=== PATIENT | female | born 1970 | race African-American/Black ===

== ENCOUNTER 2018-08-24 10:25 | Emergency (ER) | payer MEDICAID, OTHER ==
[~2018-08-24] VITALS: Ht 165.1 cm; Wt 87.0 kg
[~2018-08-24 10:25] MED LIST: OMEP20CA4 PO; TRIA1TAB5
[2018-08-24 10:40] VITALS: BP 149/89
== END 2018-08-24 13:40 | disposition home or self-care (01) ==
LOC: ER 10:25
DX: J06.9 Acute upper respiratory infection, unspecified (principal); I10 Essential (primary) hypertension; F17.200 Nicotine dependence, unspecified, uncomplicated; Z90.49 Acquired absence of other specified parts of digestive tract; Z98.51 Tubal ligation status; Z98.890 Other specified postprocedural states
CPT/HCPCS: 71045; 81025; 99283

== ENCOUNTER 2019-04-15 16:12 | Emergency (ER) | payer MEDICAID, OTHER ==
[~2019-04-15] VITALS: Ht 175.3 cm; Wt 84.0 kg
[2019-04-15] MEDS ORDERED: KETOROLAC 30MG/ML VIAL IV STA (20:17)
[2019-04-15] MEDS ORDERED: SODIUM CHLORIDE 0.9% 1,000 ML IV ONE (20:17)
[2019-04-15] MEDS ORDERED: ONDANSETRON HCL 4MG/2ML INJ IV STA (20:17)
[2019-04-15 20:55] LABS: CLARITY URINE CLEAR (CLEAR); COLOR URINE YELLOW (YELLOW); PH URINE 5.5 (4.5-8.0); SPECIFIC GRAVITY URINE 1.016 (1.005-1.030)
[2019-04-15 20:56] LABS: KETONES URINE NEGATIVE (NEGATIVE); LEUKOCYTE ESTERASE URINE NEGATIVE (NEGATIVE); NITRITE URINE NEGATIVE (NEGATIVE); OCCULT BLOOD URINE NEGATIVE (NEGATIVE); PROTEIN URINE 3+ (NEGATIVE); UROBILINOGEN URINE 0.2 E.U./dL (0.2-1.0)
[2019-04-15 21:25] LABS: CHLORIDE 107 mEq/L (98-107)
[2019-04-15 21:28] LABS: BASOPHILS % 1.5 % (0.0-2.0); EOSINOPHILS % 2.7 % (0.0-5.0); HEMATOCRIT. 28.1 % (36.0-48.0); HEMOGLOBIN. 9.1 g/dL (12.0-16.0); LYMPHOCYTES % 29.7 % (20.0-50.0); MEAN CORPUSCULAR HEMOGLOBIN 21.7 pg (28.0-32.0); MEAN CORPUSCULAR VOLUME 67.2 fL (81.0-99.0); MONOCYTES % 9.2 % (2.0-8.0); NEUTROPHILS % 56.9 % (40.0-76.0); PLATELET 381 x1000/uL (130-400); RED BLOOD CELL COUNT 4.18 mill/uL (4.2-5.4); RED CELL DISTRIBUTION WIDTH 17.7 % (11.6-14.6)
[2019-04-15 21:44] LABS: PLATELET ESTIMATE NORMAL
[2019-04-15] MEDS ORDERED: LIDOCAINE 5% PATCH TOP STA (22:27)
[2019-04-15] MEDS ORDERED: POTASSIUM CHLORIDE 20MEQ/PACKET PO ONE (22:30)
[2019-04-15] MEDS ORDERED: ACETAMINOPHEN 325MG TABLET PO ONE (22:30)
[2019-04-15] MEDS ORDERED: KETOROLAC 15MG/ML VIAL IV ONE (22:30)
[2019-04-16 02:07] VITALS: BP 142/83
== END 2019-04-16 02:27 | disposition home or self-care (01) ==
LOC: ER 16:12
DX: R10.9 Unspecified abdominal pain (principal); Z71.6 Tobacco abuse counseling; F17.200 Nicotine dependence, unspecified, uncomplicated; I10 Essential (primary) hypertension; E03.9 Hypothyroidism, unspecified; Z98.890 Other specified postprocedural states
CPT/HCPCS: 36415; 74176; 76830; 76856; 80053; 81003; 81025; 83690; 85025; 96374; 96375; 96376; 99284; 99406; J1885; J2405; J7030; Z7610

== ENCOUNTER 2024-06-29 22:50 | Inpatient (IN) | payer MEDICAID, OTHER ==
[~2024-06-29] VITALS: Ht 162.6 cm; Wt 98.4 kg
[2024-06-29 23:07] VITALS: O2SAT 98
[2024-06-29] MEDS: NITROGLYCERIN 0.4MG TABLET SL SL PRN (23:45)
[2024-06-29] MEDS: ASPIRIN 81MG TABLET PO ONE (23:45)
[2024-06-30 01:38] LABS: BASOPHILS % 1.1 % (0.0-2.0); EOSINOPHILS % 3.8 % (0.0-5.0); HEMOGLOBIN. 12.3 g/dL (12.0-16.0); LYMPHOCYTES % 32.3 % (20.0-50.0); MEAN CORPUSCULAR HEMOGLOBIN 30.9 pg (28.0-32.0); MEAN CORPUSCULAR HGB CONC 34.3 g/dL (31.0-37.0); MEAN CORPUSCULAR VOLUME 90.1 fL (81.0-99.0); MEAN PLATELET VOLUME 8.5 fl (7.4-10.4); MONOCYTES % 8.6 % (2.0-8.0); NEUTROPHILS % 54.2 % (40.0-76.0); PLATELET 264 x1000/uL (130-400); RED CELL DISTRIBUTION WIDTH 12.6 % (11.6-14.6); WHITE BLOOD COUNT 7.3 x1000/uL (4.5-11.0)
[2024-06-30 01:39] LABS: CHLORIDE 106 mEq/L (98-107); POTASSIUM 3.4 mEq/L (3.5-5.1); SODIUM 139 mEq/L (136-145)
[2024-06-30 01:40] LABS: CALCIUM 8.8 mg/dL (8.7-10.4); CARBON DIOXIDE 24 mEq/L (21-32)
[2024-06-30 01:45] LABS: GLUCOSE 93 mg/dL (70-105); UREA NITROGEN BLOOD 14 mg/dL (9-23)
[2024-06-30 01:51] LABS: TROPONIN I HIGH SENSITIVITY < 4 ng/L (3.0-34)
[2024-06-30 04:15] LABS: TROPONIN I HIGH SENSITIVITY < 4 ng/L (3.0-34)
[2024-06-30] MEDS: POTASSIUM CHLORIDE 20MEQ/PACKET PO ONE (04:17)
[2024-06-30] MEDS ORDERED: MORPHINE SULFATE 4 MG/ML INJ (FOR IV/IM USE) IV STA (04:38)
[2024-06-30 04:44] LABS: D-DIMER 0.25 mg/L FEU (<0.50); INR 0.9; PARTIAL THROMBOPLASTIN TIME 26.2 sec (23.4-31.0); PROTHROMBIN TIME 10.6 sec (9.6-11.0)
[2024-06-30] MEDS ORDERED: IOHEXOL-350 100 ML BOTTLE ONE (05:36)
[2024-06-30] MEDS: ONDANSETRON HCL 4MG/2ML INJ IV NR (06:54)
[2024-06-30] MEDS: MORPHINE SULFATE 4 MG/ML INJ (FOR IV/IM USE) IV NR (06:55)
[2024-06-30] MEDS: ONDANSETRON HCL 4MG/2ML INJ IV STA (06:58)
[2024-06-30] MEDS ORDERED: IPRATROPIUM/ALBUTEROL 0.5-3(2.5)MG/3ML NEB NEB PRN (07:45)
[2024-06-30] MEDS ORDERED: CLONIDINE 0.1MG TABLET PO PRN (07:45)
[2024-06-30] MEDS ORDERED: ACETAMINOPHEN 325MG TABLET PO PRN ×2 (07:45)
[2024-06-30] MEDS ORDERED: HYDROCODONE/ACETAMINOPHEN 5/325MG TABLET PO PRN (07:45)
[2024-06-30] MEDS ORDERED: MAGNESIUM/ALUMINUM HYDROXIDE/SIMETHICONE 30ML UDC PO PRN (07:45)
[2024-06-30] MEDS ORDERED: DOCUSATE SODIUM 100MG CAPSULE PO PRN (07:45)
[2024-06-30] MEDS ORDERED: NALOXONE HCL 0.4MG/ML VIAL IV PRN (08:15)
[2024-06-30] MEDS: ASPIRIN 81MG EC TABLET PO SCH (09:00)
[2024-06-30] MEDS: PANTOPRAZOLE 40MG DR TABLET PO SCH (10:15)
[2024-06-30] MEDS: LISINOPRIL 10MG TABLET PO SCH (13:17)
[2024-06-30 13:54] LABS: T4 FREE 1.36 ng/dL (0.89-1.76)
[2024-06-30] MEDS ORDERED: METOPROLOL TARTRATE 5MG/5ML VIAL IV PRN (15:15)
[2024-06-30 17:13] VITALS: BP 150/84; PULSE 84; RESP 19; TEMP 36.696
[2024-06-30 20:00] VITALS: BP 139/94; PULSE 56; RESP 18; TEMP 36.89184; O2SAT 99
[2024-06-30] MEDS: ENOXAPARIN 30MG/0.3ML SYR SUBCUT SCH (21:00)
[2024-06-30] MEDS ORDERED: LISI10TA26 MT (21:40)
[2024-06-30] MEDS ORDERED: LEVO200T8 MT (21:46)
[2024-07-01] VITALS: BP 185/118; PULSE 90; RESP 18; TEMP 36.83628; O2SAT 98
[2024-07-01 00:19] LABS: CREATINE KINASE MB FRACTION < 0.5 ng/mL (0.5-3.6)
[2024-07-01 00:20] LABS: CREATINE KINASE 47 IU/L (34-145)
[2024-07-01 00:21] LABS: TROPONIN I HIGH SENSITIVITY < 4 ng/L (3.0-34)
[2024-07-01 00:30] VITALS: BP 137/98; PULSE 60
[2024-07-01 04:00] VITALS: BP 127/70; PULSE 60; RESP 17; TEMP 36.9474; O2SAT 98
[2024-07-01 08:00] VITALS: BP 140/97; PULSE 55; RESP 18; TEMP 37.00296; O2SAT 99
[2024-07-01 08:32] LABS: BASOPHILS % 1.3 % (0.0-2.0); EOSINOPHILS % 4.5 % (0.0-5.0); HEMATOCRIT. 36.7 % (36.0-48.0); HEMOGLOBIN. 12.4 g/dL (12.0-16.0); LYMPHOCYTES % 33.1 % (20.0-50.0); MEAN CORPUSCULAR HEMOGLOBIN 30.8 pg (28.0-32.0); MEAN CORPUSCULAR HGB CONC 33.7 g/dL (31.0-37.0); MEAN CORPUSCULAR VOLUME 91.2 fL (81.0-99.0); MEAN PLATELET VOLUME 9.1 fl (7.4-10.4); MONOCYTES % 11.4 % (2.0-8.0); NEUTROPHILS % 49.7 % (40.0-76.0); PLATELET 225 x1000/uL (130-400); RED BLOOD CELL COUNT 4.02 mill/uL (4.2-5.4); RED CELL DISTRIBUTION WIDTH 12.7 % (11.6-14.6); WHITE BLOOD COUNT 5.3 x1000/uL (4.5-11.0)
[2024-07-01 08:37] LABS: CHLORIDE 106 mEq/L (98-107); POTASSIUM 3.5 mEq/L (3.5-5.1); SODIUM 140 mEq/L (136-145)
[2024-07-01 08:39] LABS: CARBON DIOXIDE 27 mEq/L (21-32)
[2024-07-01 08:45] LABS: GLUCOSE 103 mg/dL (70-105); TRIGLYCERIDE 297 mg/dL (0-150); UREA NITROGEN BLOOD 10 mg/dL (9-23)
[2024-07-01 08:46] LABS: ALANINE AMINOTRANSFERASE 18 IU/L (10-49); ASPARTATE AMINOTRANSFERASE 22 IU/L (<34); LDL CHOLESTEROL 104 mg/dL (5-100)
[2024-07-01 08:47] LABS: ALBUMIN 3.8 g/dL (3.2-4.8); CHOLESTEROL 206 mg/dL (<200); HDL CHOLESTEROL 52 mg/dL (>65); PROTEIN TOTAL 6.6 g/dL (6.0-8.3); THYROID STIMULATING HORMONE 13.86 uIU/mL (0.55-4.78)
[2024-07-01] MEDS ORDERED: ASPI-1406 PO (10:45)
[2024-07-01] MEDS: NITROGLYCERIN SPRAY/4.9GM CAN TL ONE (11:20)
[2024-07-01 12:00] VITALS: BP 132/88; PULSE 62; RESP 19; TEMP 36.9474; TEMP 36.94740; O2SAT 98
[2024-07-01] MEDS ORDERED: IOHEXOL-350 100 ML BOTTLE ONE (14:53)
== END 2024-07-01 18:41 | disposition home or self-care (01) | DRG 313 ==
LOC: ER 22:50 → 5WST 06-30 05:53 → EDBEDREQDT 06-30 06:00 → EDBEDREQTM 06-30 06:00 → EDBEDREQ 06-30 06:00
PROVIDERS: ADMIT Internal Medicine; ATTEND Internal Medicine
DX: R07.89 Other chest pain (principal); K21.9 Gastro-esophageal reflux disease without esophagitis; E87.6 Hypokalemia; E66.9 Obesity, unspecified; I25.10 Atherosclerotic heart disease of native coronary artery without angina pectoris; I10 Essential (primary) hypertension; E03.9 Hypothyroidism, unspecified; F17.210 Nicotine dependence, cigarettes, uncomplicated; Z68.37 Body mass index [BMI] 37.0-37.9, adult; Z71.51 Drug abuse counseling and surveillance of drug abuser
CPT/HCPCS: 36415; 71045; 71275; 74174; 75571; 80048; 80053; 80061; 82550; 82553; 83880; 84439; 84443; 84484; 85025; 85379; 93005; 99285; J1650; J2270; J2405; Q9967